=== PATIENT | female | born 1940 | race Caucasian/White ===

== ENCOUNTER 2020-03-01 15:28 | Inpatient (IN) | payer OTHER ==
[~2020-03-01] VITALS: Ht 162.6 cm; Wt 44.6 kg
--- NOTE | ~2020-03-01 | EMS ---
[address] [address] EMS Patient Care Report Name: RAFIA GARCÍA Room #: 170-8 ADM IN M.R.#: [id number] Admission: 03/01/20 Attend Phys: Arnoldo Rios DO Discharge: Date of : 38 Report #: [id number] THIS REPORT FOR: //name// Report Transmitted: 03/01/2020 20:07 EMS Care Summary [facility] MED-ACT Incident [id number] @ 03/01/2020 14:43 Incident Location [address] [place] [address] Patient RAFIA JACINTO Female, 79 Years 1940 Patient Address [address] [place] [address] Patient History Other,Dementia,Alzheimer's,Hyperlipidemia,Cardiac Condition - Other,Urinary Tract Infection (UTI),Diverticulitis,Osteoarthritis,Rhabdomyolysis, Patient Allergies No known allergies, Patient Medications Namenda, Xanax, Exelon, Potassium, Celexa, Ativan, Senna, Olanzapine, Chief Complaint "She is combative" Disposition Transported No Lights/[place] [facility] Reason Psychiatric Problem/Abnormal Behavior/Suicide Attempt Transported To [facility] Narrative HISTORY: Upon EMS arrival the patient was sitting in her wheelchair at the front entrance with staff and PD at her side. Staff stated the patient has a [facility] [address] [place] [address] EMS Patient Care Report Name: RAFIA GARCÍA Room #: 170-8 ADM IN .R.#: [id number] Admission: 03/01/20 Attend Phys: Arnoldo Rios, DO Discharge: Date of : 38 Report #: [id number] history of dementia and is normally able to express her needs but starting yesterday they noticed her to be combative and inconsolable. Staff stated the patient is normally able to follow directions but she currently refuses to follow commands. Staff said that they have given the patient her psych medications as prescribed, staff stated they have not effected the patients behavior. Staff stated the patient tested negative for COVID-19 on 02/22. They stated the patient has had not recent illnesses. When the patient was asked if anything hurt she stated, "everything is wrong". The patient refused to answer any further questioning but was compliant with exams. TREATMENT: V/S monitored, BG, TEMP, exams were repeated, a mask was placed on the patient, patient was put in the position of comfort. TRANSPORT: The patient stood and sat on the cot with assistance, she was moved to the ED bed via sheet drag without incident. DESTINATION: The patient was taken to [facility] ED to a hallway bed, report was given to nursing staff. Initial Vitals @15:19P: 75,BP: 124/73,Pain: 0/10,GCS: 14,Glucose: 88,SpO2: 95, @15:11P: 74,R: 16,BP: 130/84,SpO2: 96, @15:22P: 75,R: 16,BP: 125/82,SpO2: 95, Assessments @15:18MENTAL:Confused,Person Oriented,SKIN:HEENT:Eyes: No Abnormalities,LUNG SOUNDS:ABDOMEN:PELVIS//GI:EXTREMITIES:PULSE:Radial: 2+ Normal,NEURO: Impression Behavioral/psychiatric episode Timeline 14:41,Call Received 14:41,Psap Call 14:43,Dispatched 14:44,En Route 15:00,On Scene 15:02,At Patient 15:11,BP: 130/84 M,PULSE: 74,RR: 16 R,SPO2: 96 Ox,ETCO2: ,BG: ,PAIN: ,GCS: , 15:12,Depart Scene 15:19,BP: 124/73 M,PULSE: 75,RR: R,SPO2: 95 Ox,ETCO2: ,B,PAIN: 0,GCS: 14, 15:22,BP: 125/82 M,PULSE: 75,RR: 16 R,SPO2: 95 Ox,ETCO2: ,BG: ,PAIN: ,GCS: , 15:25,At Destination 15:35,Call Closed [facility] [address] [place] [address] EMS Patient Care Report Name: RAFIA GARCÍA Room #: 170-8 ADM IN M.R.#: [id number] Admission: 03/01/20 Attend Phys: Arnoldo Riso DO Discharge: Date of : 38 Report #: [id number] Disclaimer v1.1 Copyright 2020 [employer] This EMS Care Summary contains data elements from the applicable legal record (which may be displayed differently). It is designed to provide pertinent information for the following purposes: continuity of care, clinical quality, and state data reporting. The complete legal record is available to ED staff and administrators of the receiving hospital in [employer] Patient Tracker. All data is provided "as is."
--- NOTE | 2020-03-01 16:39 | EKG ---
[facility] [place] [address] ELECTROCARDIOGRAM REPORT Name: RAFIA GARCÍA Room #: [facility].#: [id number] Admission: 03/01/20 Attend Phys: Discharge: Date of : 36 Report #: [id number] THIS REPORT FOR: cc: ANDRES TAVARES MD Physician not on staff Riccardo Nguyen MD [facility] ~ THIS REPORT FOR: //name// [facility] ED Test Date: 2020-03-01 Test Time: 16:28:32 Pat Name: RAFIA VO Department: Room: Gender: F Bench Press Operator: : 1940 Requested By: Reny Sanchez Order Number: [id number] MD: Riccardo Nguyen Measurements Intervals [place] Rate: 75 P: 65 MD: 183 QRS: 42 QRSD: 78 T: 26 QT: 406 QTc: 454 Interpretive Statements Sinus rhythm Probable left atrial enlargement Abnormal R-wave progression, early transition No previous ECG available for comparison Electronically Signed On 03-01-2020 16:39:11 CDT by Riccardo Nguyen [email or web address] <ELECTRONICALLY SIGNED> By: Riccardo Nguyen MD, FACC 03/01/20 1639 1628 1628 Riccardo Nguyen MD, [facility] /EPI
[2020-03-01 17:12] LABS: ABSOLUTE NEUTROPHILS 6.1 thou/uL (1.4-8.2); BASOPHILS 0.8 % (0.0-2.0); EOSINOPHILS 0.6 % (0.0-3.0); HEMATOCRIT 37.6 % (37.0-47.0); HEMOGLOBIN 12.1 gm/dL (12.0-15.0); LYMPHOCYTES 14.1 % (24.0-44.0); MCH 29.5 pg (26.0-34.0); MCHC 32.3 g/dL (28.0-37.0); MCV 91.5 fL (80.0-100.0); MONOCYTES 8.9 % (1.0-8.0); POLYS 75.6 % (36.0-66.0); RBC 4.11 mil/uL (4.20-5.00); RDW 13.4 % (10.5-14.5); WBC 8.1 thou/uL (4.0-11.0)
[2020-03-01 17:18] LABS: ANION GAP 5 mmol/L (7-16); BUN 20 mg/dL (7-18); CALCIUM 8.7 mg/dL (8.5-10.1); CHLORIDE 103 mmol/L (98-107); CO2 34 mmol/L (21-32); CREATININE 0.6 mg/dL (0.6-1.0); GLUCOSE 93 mg/dL (74-106); POTASSIUM 3.5 mmol/L (3.5-5.1); SODIUM 142 mmol/L (136-145)
[2020-03-01 17:28] LABS: ALBUMIN 3.1 g/dL (3.4-5.0); SGOT 20 U/L (15-37); SGPT 22 U/L (30-65); TOTAL BILIRUBIN 0.6 mg/dL (0.2-1.0); TROPONIN-I <0.06 ng/mL (<0.06)
[2020-03-01 17:32] LABS: LARGE PLATELETS RARE; PLATELET COUNT 181 thou/uL (150-400)
[2020-03-01 17:48] LABS: SALICYLATE < 2.8 mg/dL (2.8-20.0)
[2020-03-01 20:16] LABS: URINE BILIRUBIN NEGATIVE (Negative); URINE BLOOD NEGATIVE (Negative); URINE CLARITY CLEAR; URINE COLOR YELLOW; URINE GLUCOSE-RANDOM* NEGATIVE (Negative); URINE KETONES NEGATIVE (Negative); URINE LEUKOCYTES-REFLEX NEGATIVE (Negative); URINE NITRITE-REFLEX NEGATIVE (Negative); URINE PROTEIN (DIPSTICK) NEGATIVE (Negative); URINE SPECIFIC GRAVITY 1.015 (1.005-1.035); URINE UROBILINOGEN 0.2 E.U./dl (0.2-1.0)
[2020-03-01 20:24] LABS: AMP/METHAMP Negative (Negative); BARBITURATES Negative (Negative); BENZODIAZEPINES POSITIVE (Negative); COCAINE Negative (Negative); METHADONE Negative (Negative); OPIATES Negative (Negative); PCP Negative (Negative)
[2020-03-01] MEDS ORDERED: CELEXA 20 MG TA20 MG PO (21:14)
[2020-03-01] MEDS ORDERED: MEMANTINE HCL10 MG PO (21:14)
[2020-03-01] MEDS ORDERED: COLACE100 MG PO (21:15)
[2020-03-01] MEDS ORDERED: OCUVITE TABLET1 EAC1 PO (21:15)
[2020-03-01] MEDS ORDERED: EXELON1 EAC1 TRANSDERM (21:22)
[2020-03-01] MEDS ORDERED: OLANZAPINE2.5 MG PO (21:22)
[2020-03-01] MEDS ORDERED: OYSTER SHELL C1 EAC1 PO (21:23)
[2020-03-01] MEDS ORDERED: K-TAB10 MEQ PO (21:23)
[2020-03-01] MEDS ORDERED: SENNA8.6 MG PO ×2 (21:23→21:24)
[2020-03-01] MEDS ORDERED: XANAX 0.25 MG0.25 MG PO ×2 (21:24→21:25)
[2020-03-02 03:38] VITALS: BP 137/77
[2020-03-02 03:46] VITALS: BP 151/59
[2020-03-02 04:15] VITALS: BP 156/70
--- NOTE | 2020-03-02 06:07 | NUR ---
03-02-20 0400 RECEIVED REPORTED FROM ED RN, DEMENTIA WITH AGGRESSIVE BEHAVIORS FROM [facility] AND PT HAS BEEN COMBATIVE WITH CONFUSION. 0415 PT ARRIVED ON FLOOR AND WAS ASSISTED INTO BED, PT AAOX1, LEFT SIDE LYING VS B/P 156/70, P 65, R 16, T 97.8, O2 SAT 95% RA RR EVEN AND NONLABORED, LUNGS CLEAR, HT S1, S2 RR, PT PRESENTS LETHARGIC HAVING TROUBLE ANSWERING QUESTIONS. SKIN ASSESSMENT RIGHT HAND POSTERIOR 3 SKIN TEARS 2 CM X2 AND 5 CM. RIGHT LEG OLD SCABBED ON RIGHT KNEE AND SKINBONE. PT WAS POSITION INTO COMFORT. PT HAS A HX ENCEPHALOPATHY, RHAMBDOMYOLYSIS, UTI, ALZEHIMERS, DEMENTIA WITH BEHAVIORAL DISTURBANCE, NONRHEUMATIC MITRAL INSUFFICIENCY, HLD, DEPRESSIVE, REPEATED FALLS, HALLUCINATIONS, MUSCLE WEAKNESS. PT WAS REPOSITION IN BED, ZERO S/S OF ACUTE DISTRESS NOTED, PT WILL CONTINUE TO BE MONITOR PER [facility] PROTOCOL.
[2020-03-02 08:00] VITALS: BP 131/72
--- NOTE | 2020-03-02 09:14 | NUR ---
PATIENT IS SLEEPING IN BED BUT IS EASILY AROUSED. LUNGS CTA BS + XS 4. HAS SKIN TEAR TO LEFT HAND HAS SCABS AND BRUISING TO KNEES. WILL GIVE AM MEDS WHEN PT IS UP AND IN CHAIR. PICTURE TAKEN FOR CHART AND PICTURE TAKEN FOR CHART. PT WALKING WITH STEADY GAIT. WAS ENCOURAGED TO USE WALKER BUT PATIENT DECLINED.
--- NOTE | 2020-03-02 12:03 | NUR ---
VERNA and Dr. Weston had a family meeting with the Pt's daughter/DPOA, Nelida Nam [phone]. Treatment, medication, and placement was discussed. Memory care is reommended for the Pt. Nelida stated the Pt was dx with shabbira Jul 2017. Nelida also that the family is looking for placement with [facility]. Nelida informed that [facility] wanted the Pt's behaviors decrease prior to admission. Verna will follow up with [facility] on the matter. VERNA will continue to follow Pt.
--- NOTE | 2020-03-02 12:48 | NUR ---
PT WAS IN BED AND WAS INCONT OF BLADDER, PT CLEANED UP AND CLEAN DRY BRIEF ON. THIS NURSE TRIED TO GIVE MEDS BUT PATIENT SPIT OUT AND ON STAFF. ASSIST XS [address] Mitra QIU. PT AT THIS TIME IS SLEEPING.
--- NOTE | 2020-03-02 16:03 | NUR ---
PT IS IN RASHI CHAIR SPITTING AT STAFF AND TRYING TO HIT.GIVEN PRN MED IM ORDERED. GAVE IN RIGHT DELTOID. WILL CONTINUE TO MONITOR AND KEEP SAFE.
--- NOTE | 2020-03-02 18:49 | NUR ---
WOUND CARE PICTURES TAKEN OF PATIENTS RIGHT HAND. WOUND CARE NURSE CALLED AND MESSAGE LEFT FOR HIM TO SEE PATIENT AND PUT IN TX ORDER .
[2020-03-02 19:49] VITALS: BP 91/59
--- NOTE | 2020-03-03 00:19 | NUR ---
Care assumed of patient at 1915: Patient seated in maki chair in dayroom at start of shift. Patient awake and fairly alert. Restless and needing repositioned frequently. Patient able to state her name but not able to answer any further questions. No s/s of pain or discomfort. No behaviors indicative of SI/HI/AH/VH. Patient easily irritable and startled. No aggression or combative behaviors observed. Patient incontinent of bowel and bladder. Patient resistive with desiree care by attempting to push staff away but was not physically or verbally aggressive. HS medication crushed in pudding. When patient was asked if she wanted a bite of pudding, she clearly asked "what kind?". Patient then took all HS medication crushed and ate 100% HS snack with total assist. Patient was assisted to bed with max assist x2 at a reasonable hour and has been resting quietly since.
[2020-03-03 07:53] VITALS: BP 140/64
[2020-03-03 08:00] VITALS: BP 140/64
--- NOTE | 2020-03-03 08:20 | NUR ---
PT SITTING IN DINING FOR BREAKFAST. PT NEEDED FED BREAKFAST. PT CAN ANSWER SHORT EASY QUESTIONS. PT LUNGS CLEAR. PT NEEDS ASSIST WITH TOILETING. PT TOOK MEDS CRUSHED. PT WAS CHEWING UP VITAMIN MED. PT ATE REALLY GOOD FOR BREAKFAST.
--- NOTE | 2020-03-03 10:47 | NUR ---
WOUND CONSULT; THE PATIENT RIGHT HAND HAS THREE SKIN TEARS OF UKNOWN ETIOLOGY. NO CONSISTANT WITH A COMMON SKIN TEAR. NO S/S OF INFECTION. MILD SEROUS DRAINAGE WNL. THE PATIENT IS NON COMMUNICATIVE, BUT DOES NOT APPEAR TO CAUSE PAIN WHILE CLEANING THE WOUND OR APPLYING A DRESSING. RECOMMENDATIONS; 1-APPLIED A MARATHON (A NO STING SKIN PROTECTANT),COVER WITH A BORDER FOAM.SECIRED WITH A TUBIGRIP. DISCUSSED WITH TAVO
--- NOTE | 2020-03-03 15:45 | NUR ---
VERNA recieved a voice mail from Socorro Dean from [facility]. Socorro confirmed she recieved the updates VERNA faxed. Socorro also expressed concern about accepting the Pt into the facility. Socorro stated she was "skeptical" about the pt coming to the facility. Socorro stated she would like updates on Friday in and effort to further assess if Pt would be appropriate for [facility].
--- NOTE | 2020-03-03 16:06 | NUR ---
VERNA spoke with Pt's DPOA, Nelida. SW informed nelida about [facility] voicemail and the concerns they continue to have. Verna asked if Nelida could provide other facilities she would like referrals sent to. Nelida stated she will have a phone confrence with her sibling and get back with VERNA on Friday concerning the matter.
--- NOTE | 2020-03-03 18:23 | NUR ---
PT HAS BEEN RESTING MOST OF THE DAY IN DINING ROOM. PT IS AWAKE NOW AT THIS TIME. PT NEEDED ASSISTANCE WITH FEEDING AND DRINKING. NO BEHAVIORS NOTED FROM PT.
[2020-03-03 19:38] VITALS: BP 109/49
[2020-03-03 20:00] VITALS: BP 109/49
--- NOTE | 2020-03-04 02:37 | NUR ---
ASSUMED PT CARE AROUND 1930. ALERT AND AWAKE IN RECLINER. ONLY ASNWERS NAME CORRECT. PT DID NOT ANSWER ANY OTHERS QUESTIONS APPROPRIATELY. VSS. NO S/S ACUTE DISTRESS NOTED OR REPORTED AT THIS TIME. WILL CONT TO MONITOR FOR ANY CHANGES IN CONDITION.
[2020-03-04 07:39] VITALS: BP 121/74; BP 146/84
[2020-03-04 07:47] VITALS: BP 146/84
[2020-03-04 08:00] VITALS: BP 146/84
--- NOTE | 2020-03-04 08:00 | NUR ---
PT RESTING IN BED AT THIS TIME. PT SNORING. BED ALARM IS ACTIVATED.
--- NOTE | 2020-03-04 09:19 | NUR ---
PT STILL SLEEPING AT THIS TIME.
--- NOTE | 2020-03-04 10:11 | NUR ---
PT STILL ASLEEP AT THIS TIME.
--- NOTE | 2020-03-04 11:15 | NUR ---
PT MOANING OUT AND AWAKE. PT LAYING FLAT, PT SAID GO AWAY WHEN TELLING HER IS TIME TO GET UP. PT VERY STIFF WHEN ROLLING FROM ONE SIDE OF BED TO ANOTHER. PT SEEMS IN PAIN. ASKED PT WHERE SHE HURTS, PT POINTED TO ABD. ABD PALPATED AND IS SOFT. PT WAS SATURATED IN URINE IN BRIEF AND PAPER PAD. CLEANED PT AND APPLIED BARRIER CREAM. PT DID HAVE SMALL AMT OF MUCOUS IN FINESSE AREA. PT MOUTH IS DRY.
--- NOTE | 2020-03-04 11:51 | NUR ---
PT MOANING AND GRIMACING. ADM TYLENOL 325MG 2 TABS PO FOR PAIN. PT DID EAT 100% OF YOGART AND ONE BITE OF CARROT. PT DID DRINK A FEW SIPS OF WATER THEN CLOSED EYES TO REST, PT OUT IN DINING ROOM IN RECLINER CHAIR.
--- NOTE | 2020-03-04 15:53 | NUR ---
PT WAS OFFERED WATER TO DRINK, PT REFUSED AND KNOCKED IT OFF THE FLOOR.
[2020-03-04 19:36] VITALS: BP 143/114
[2020-03-04 22:15] VITALS: BP 143/114
--- NOTE | 2020-03-05 03:13 | NUR ---
Assumed care of patient this pm shift. Patient sitting in the mileu in a maki chair. Patient is calm and cooperative. Affect blunted. Patient is alert and oriented to self. Patient takes medications crushed in pudding. Patient does not appear to have hi/si. Patients assessment shows no signs of acute distress. Patient is considered a falls risk and has on a yellow shirt. Patient does get agitated with cares then calms down. We will continue to monitor per hospital policy.
[2020-03-05 07:49] VITALS: BP 115/73
--- NOTE | 2020-03-05 09:09 | NUR ---
0700 ASSUMED CARE OF PATIENT, PATIENT SITTING IN WC IN DAYROOM QUIETLY AT THAT TIME. 0815 PATIENT EATING BREAKFAST WITHOUT ASSISTANCE. DENIES NEEDS AT THAT TIME. MEDICATION TAKEN WITH APLLESAUCE WITHOUT DIFFICULTY. PATIENT ATTENDING GROUP AT THIS TIME.
--- NOTE | 2020-03-05 09:26 | NUR ---
0700 ASSUMED CARE OF PATIENT, PATIENT SITTING IN GERICHAIR IN DAYROOM. 0810 PATIENT ASSISTED WITH BREAKFAST. PATIENT ALERT, CONFUSED AND RESTLESS. MEDICATIONS ATTEMPTED TO GIVE IN PUDDING, PATIENT SPITS PUDDING OUT. FOUNDRY METALLURGIST WAITED A FEW MIN THEN RETURNED AND PATIENT TAKES MEDICATION IN APPLESAUCE. PATIENT TRYING TO REMOVE SHIRT, COMBATIVENESS WITH CARES WHILE PUTTING SHIRT BACK ON. [facility] NOT [facility]ING GROUP.
--- NOTE | 2020-03-05 13:34 | NUR ---
Faxed updates to [facility].
[2020-03-05 19:23] VITALS: BP 138/68
[2020-03-05 22:00] VITALS: BP 138/68
--- NOTE | 2020-03-06 03:23 | NUR ---
Assumed care of patient this pm shift. Patient pleasantly confused, calm and cooperative. Patient is alert and oriented to self. Patient takes medications crushed in pudding. Patients affect is blunted. Patient is considered a falls risk and has on a yellow shirt. Patients assessment shows no signs of acute distress. Vital signs are stable. We will continue to monitor per hospital policy.
[2020-03-06 07:46] VITALS: BP 154/85
--- NOTE | 2020-03-06 07:57 | H ---
[facility] [place] [address] HISTORY AND PHYSICAL Name: RAFIA GARCÍA Room #: 520A-A ADM IN M.R.#: [id number] Admission: 03/01/20 Attend Phys: Arnoldo Rios DO Discharge: Date of : 38 Report #: [id number] THIS REPORT FOR: cc: ANDRES TAVARES MD Physician not on staff Arnoldo Rios DO ~ CC: Arnoldo TAVARES Physician staff DATE OF SERVICE: 03/01/2020 INPATIENT PSYCHIATRIC EVALUATION ATTENDING PSYCHIATRIST: Arnoldo Rios DO DRUM FILLER: Dr. Philip REASON FOR ADMISSION: Combativeness, agitation and need for 1:1 at [facility]. SOURCES OF INFORMATION: Documentation from nursing facility, specifically Dr. Tavares's telephone conversation with the patient's daughter, Nelida vargas at [phone]. CHIEF COMPLAINT: This patient is not able to specify and has difficulty talk to. HISTORY OF PRESENT ILLNESS: This is an 79-year-old malnourished female, BMI is 17.4. The patient has only been a resident at the [facility] since 02/18/2020. We got a referral yesterday from them and Corby Waters, social work professor at [facility] stated that the patient was agitative, combative, throwing things. They were needing a 1:1. I advised to send the patient to the Emergency Room for the medical clearance first as it sounded deliriogenic. Interestingly, her medical evaluation was grossly normal. In speaking with the daughter, Nelida, troubles began in ear where she had an 11-day or so admission at [facility] for complicated delirium, stemming from the urinary tract infection. The patient has a history of Alzheimer's dementia diagnosed in 07/2017. She was at her own residence and there were intermittent caregivers coming in and out. Since , the patient has not been able to live without 24-hour care and supervision. I did discuss with the daughter early on given her urinalysis was clean in the ER and the persistence of things, she may unfortunately be at a new cognitive and functional baseline. The daughter was eyeing a placement in comfort nursing home. Again there, I cautioned her that some dementia patients require 2-person assist and home persons sometimes cannot [facility] [address] [place] [address] HISTORY AND PHYSICAL Name: RAFIA GARCÍA Room #: 520A-A ADM IN [facility]#: [id number] Admission: 03/01/20 Attend Phys: Arnoldo Rios DO Discharge: Date of : 38 Report #: [id number] provide that people power. In any event, the patient was born and raised with one brother, intact family. She graduated with a bachelor's degree in [employer]. 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 The patient has 3 children total. The daughter, Nelida is the youngest, was born in 1971. PAST MEDICAL HISTORY: Includes allergic rhinitis, diverticulosis, hyperlipidemia, mitral insufficiency, osteoarthritis, osteopenia, depression, urinary incontinence. FAMILY HISTORY: Hypertension in mother, osteoporosis in mother, father's side is not well known. There is a gross negative family psychiatric history including dementia. The daughter did not believe that the patient had been physically, sexually or emotionally abused. Her brother is younger, alive, in good health. The patient socially has been x 2. PSYCHIATRIC MEDICATIONS: Have been tried include Xanax 0.25 mg as needed; olanzapine 2.5 mg twice daily, which she is currently on; Exelon patch 9.5 mg; Namenda 10 mg p.o. twice daily; and Celexa 20 mg p.o. daily, which she is currently on. Her SARS COVID-19 RNA was not detected that was done on 02/20, resulted on 02/22. Additional information at [facility], it says she did get a CT head, which was negative for acute changes. CPK was mildly elevated. The patient had a fall a few days prior to her [facility] presentation. Does not look like they found the fracture, was given IV fluids, IV antibiotics. It says the patient was on IV Zyprexa, which I find hard to believe as Zyprexa is not available for intravenous administration. In any event, there was a Neurology consult at [facility]. PAST SURGICAL HISTORY: Includes hysterectomy, , malrotated bowel repair. MEDICATIONS: At [facility] were Celexa, Exelon patch, Namenda, olanzapine 2.5 b.i.d. On oyster, vitamin D complex, potassium chloride extended release, senna tablets and then the p.r.n. Xanax. Looks like they were attempting to do OT, speech therapy for the patient, not sure how successful that was. In any event, the patient with us is grossly nonambulatory in bed, actually spitting this morning so not much of a physical exam. MENTAL STATUS EXAMINATION: This is a elederly, ill, malnourished, thin female. [facility] [address] [place] [address] HISTORY AND PHYSICAL Name: RAFIA GARCÍA Room #: 520A-A [facility] IN [facility].#: [id number] Admission: 03/01/20 Attend Phys: Arnoldo Rios DO Discharge: Date of : 38 Report #: [id number] Attention impaired. Concentration impaired. Speech, frequently yelling. Thought process nonlinear and incoherent at times. Thought content, poverty. Significant psychomotor agitation. Unable to assess well for suicidality; homicidality; auditory, visual, or tactile hallucinations. Memory grossly impaired. Insight impaired, judgment impaired. Fund of knowledge well below average. FORMULATION: An 79-year-old female with history of dementia, superimposed delirium, stemming from UTI in early January; admitted for assaultive, aggressive behavior at [facility]. DIAGNOSES: At this time, major neurocognitive disorder, but due to Alzheimer disease with behavioral disturbance, decompensated. History of depression, though unable to diagnose currently. Other morbidities include osteoarthritis, osteopenia, falls, unsteadiness of gait, weakness. PLAN: Evaluate, stabilize, obtain collateral. I personally helped the nursing staff transfer her from bed to Katarina chair today that proved to be quite difficult and she was essentially a max assist. Regarding her medications, we will continue potassium chloride 20 mEq p.o. b.i.d. I did speak to her daughter and she agreed to discontinue the rivastigmine due to the poor appetite and weight loss. We will continue olanzapine 5 mg p.o. b.i.d. I plan to go ahead and increase that to 3.75 mg p.o. b.i.d. with IM backup. Continue memantine 10 mg p.o. b.i.d., continue multivitamin. Continue docusate 100 mg p.o. b.i.d., hold if diarrhea. The citalopram, the more I think about it I think would better off discontinuing that given her present state which is in my opinion product support sales representative more of a delirium than anything. Continue calcium carbonate 500 mg p.o. b.i.d., try to avoid any further benzodiazepines as she got them in the ER as they are known to be deliriogenic. ESTIMATED LENGTH OF STAY: 10-14 days. Time spent on interview, review of records, coordination of care is at least 60 minutes. Greater than 50% of the time was spent on review of records, coordination of care. STRENGTHS: She is insured, has an involved DPOA. WEAKNESSES: Advanced age, dementia, several medical comorbidities. <ELECTRONICALLY SIGNED> By: Arnoldo Rios DO 03/06/20 0757 1215 1327 Arnoldo Rios DO /nt
--- NOTE | 2020-03-06 11:21 | NUR ---
WOUND CARE F/U; THE RIGHT HAND SKIN TEAR IS IMPROVING RAPIDLY EITH NO S/S OF INFECTION THE DRESSING IS CLEAN, DRY AND INTACT. NO DRAINAGE WAS SEEN. RECOMMENDATIONS; CONTINUE CURRENT TREATMENT. DISCUSSED WITH RN
--- NOTE | 2020-03-06 16:23 | NUR ---
VERNA recieved a call from [facility] stating they would not be accepting the Pt due to not being able to meet the PT's needs.
--- NOTE | 2020-03-06 16:23 | NUR ---
VERNA called Pt's DPOA, Nelida, concerning the the denial from [facility]. Nelida asked that a referral be sent to [facility]. VERNA also emailed a listing of facilities to Nelida per her request. [email or web address]
[2020-03-06 19:31] VITALS: BP 144/66
--- NOTE | 2020-03-06 23:09 | NUR ---
Care assumed of patient at 1915: Patient seated in dayroom at start of shift. Calm, pleasant and cooperative. Patient responds to name being called. Patient is able to speak clear words but they are in a disorganized, rambling pattern. Patient ate 100% HS snack, total assist. Took HS medication crushed without difficulty. No s/s of pain or discomfort. Confused and forgetful. Patient became irritable while being transferred and provided toileting cares. After wards, patient looked at staff and stated "thank you". Incontinent of bladder. Fariha care completed and linens changed. No behaviors indicative of SI/HI/AH/VH. Patient was irritable but not combative with ADLs. Patient was able to fall asleep without difficulty and is resting quietly in bed at this time.
--- NOTE | 2020-03-07 09:13 | NUR ---
0700 ASSUMED CARE OF PATIENT, PATIENT SITTING IN DAYROOM IN [facility]. PATIENT WITH EYES CLOSED AT THAT TIME. PATIENT ATE 15% OF BREAKFAST, PATIENT SPITTING OUT FOOD. 0830 MEDICATIONS GIVEN CRUSHED IN APPLESAUCE PATIENT TAKES WELL. AFTER MEDS TAKEN, PATIENT STARTS SPITTING. 0845 PATIENT SLEEPING IN CHAIR. 0900 PATIENT SPITTING, PATIENT TAKEN TO ROOM AT THAT TIME.
[2020-03-07 09:19] VITALS: BP 119/73
--- NOTE | 2020-03-07 15:31 | NUR ---
VERNA recieved a call from Crispin at [facility], . Crispin informed theey felt the Pt was benefiting from rehab and they are willing to accept the Pt back to the facility. VERNA informed that the family is also intrersted in a memory care placement with [facility]. Crispin stated she would inform the memory care and check for openings.
--- NOTE | 2020-03-07 15:55 | NUR ---
VERNA sent referral to [facility]
--- NOTE | 2020-03-07 15:56 | NUR ---
VERNA spoke with Nelida schmitt informed [facility] willing to accept Pt back for Rehab. Nelida had a question concerning information given from [facility] that the Pt had a dx of encephalopathy. VERNA looked through notes and informed nelida that [facility] did not have any information concerning that dx, however SW will get talk to Dr. Weston concerning the matter. VERNA also gave an update on Pt's. Nelida had no further questions or concerns at this time
[2020-03-07 19:35] VITALS: BP 123/82
--- NOTE | 2020-03-08 00:17 | NUR ---
Care assumed of patient at 1915: Patient seated in maki chair at start of shift, in dayroom. Patient alert, smiling, speaking clear words but disorganized speech. Alert and oriented to name only. Confused and forgetful. No s/s of pain or discomfort. Took HS medication crushed without difficulty. Ate 100% HS snack, fed by staff. No aggression or agitation observed. Assisted to bed. Cooperative with desiree care and linen change. Patient assisted in holding side rail and turning side to side this evening. Barrier cream applied. Patient was able to fall asleep without difficulty and is resting quietly at this time.
[2020-03-08 07:27] VITALS: BP 126/73
--- NOTE | 2020-03-08 08:21 | NUR ---
RT Progress Note- Ana has not been an active participant in recreation therapy groups d/t cognition, however she has been passively present. At times she has been moved further away from the group as she moans out, as if she is over stimulated or in pain. This seems to decrease some of the behavior. Staff will continue to provide leisure opportunities throughout her admission.
--- NOTE | 2020-03-08 10:38 | NUR ---
WOUND CARE F/U; THE RIGHT HAND WOUND HAS A SMALL AMOUNT OF CLOUDY DRAINAGE NO ODOR. THE WOUND IS NOT INFECTED. WE HAVE BEEN USING MARATHON TO TRY TO PRESERVE THE SKIN TEAR EPITHELIUM TO NO EVAL. THE WOUND HAS HELTHY TISSUE. RECOMMENDSATION; 1-D/C MARATHON AND CHANGE TO XEROFORM, AND BORDER FOAM DISCUSSED WITH RN
[2020-03-08 11:19] VITALS: BP 126/73
[2020-03-08] MEDS ORDERED: ZYPREXA 5 MG TAB5 M1 PO (12:06)
[2020-03-08] MEDS ORDERED: POTASSIUM CHLO20 MEQ PO (12:07)
[2020-03-08] MEDS ORDERED: CALTRATE-600 W1 EACH PO (12:08)
--- NOTE | 2020-03-08 12:30 | NUR ---
1200 RESUMMED CARE FROM OVERNIGHT SHIFT THIS AM, PATIENT IN RECLINER QUIET. PATIENT TOOK MEDICATION CRUSHED IN YOGART AND DRANK APPLE JUICE WITHOUT INCIDENCE. PATIENTS ABDOMAN SOFT ROUND BOWEL SOUNDS PRESENT, PATIENT CONFUSED ONLY ORIENTED TO SELF ONLY. PATIENT UNABLE TO TELL ME ABOUT SI/HI/AH/VH AT PRESENT DUE TO COGNITIVE PROBLEMS. WOUND CARE CAME AND CHANGED BANDAGE ON RT WRIST. LAB CALLED AND PATIENTS COVID TEST IS POSITIVE, DR DUNHAM TALKED WITH DR DE ANDA AND PATIENT IS TO BE TRANSFERRED TO MEDICAL FLOOR. WILL CONTINUE TO MONITOR PATIENT FOR BEHAVIORS AND SAFETY.
[2020-03-08 14:35] LABS: HEMATOCRIT 43.4 % (37.0-47.0); HEMOGLOBIN 14.1 gm/dL (12.0-15.0); MCH 29.7 pg (26.0-34.0); MCHC 32.5 g/dL (28.0-37.0); MCV 91.3 fL (80.0-100.0); RBC 4.75 mil/uL (4.20-5.00); RDW 13.9 % (10.5-14.5); WBC 10.4 thou/uL (4.0-11.0)
[2020-03-08 14:41] LABS: CALCIUM 9.6 mg/dL (8.5-10.1); CREATININE 0.6 mg/dL (0.6-1.0); POTASSIUM 3.9 mmol/L (3.5-5.1)
--- NOTE | 2020-03-08 14:55 | NUR ---
VERNA followed up on referral sent to [facility]. VERNA spoke with Mae at [facility]. Mae stated she would like to set up an assessment with the Pt for 03/08/2020 at 4 pm. VERNA will set assessment through domingo..
--- NOTE | 2020-03-08 16:31 | NUR ---
Pt completed asessment with Kem. VERNA and TAVO Collins was avalible to answer questions concerning the Pt.
--- NOTE | 2020-03-08 16:34 | NUR ---
VERNA spoke called Nelida concerning placement and asessment with [facility]. SW provided contact information for admissions department at [facility]. SW also discussed treatment teams conversation about the Pt's abilit to participate in Rehab. VERNA informed although Radha felt the Pt could [facility] treatment team diagreed and feels Pt is unable to participate due to being max assist X2, non weight bearing and oriented 1x. Nelida seeemed to understand this information. Nelida would like a video visit with the Pt. VERNA will set up a time to complete a visit via [email or web address]
[2020-03-08 19:34] VITALS: BP 110/74
--- NOTE | 2020-03-08 20:35 | NUR ---
Care of patient assumed at 1915: Patient calm, pleasant and cooperative. Alert and oriented to person only. Appears to be restless with mild facial grimacing. Provided PRN Tylenol with HS medication. Took HS medication crushed without difficulty. No combative behaviors or agitation observed. Report given to 3W TAVO Guevara. Patient transferred to 3W room 361 with all personal belongings present on unit.
== END 2020-03-08 20:33 | disposition short-term general hospital (02) | DRG 884 ==
LOC: ER 15:28 → EROBS 19:18 → SBH 19:18 → EROBS 19:19 → SBH 03-02 04:00
PROVIDERS: Internal Medicine; Physician Assistant; ADMIT Psychiatry & Neurology Psychiatry; ATTEND Psychiatry & Neurology Psychiatry
DX: F01.51 Vascular dementia, unspecified severity, with behavioral disturbance (principal); U07.1 COVID-19; E78.5 Hyperlipidemia, unspecified; F32.9 Major depressive disorder, single episode, unspecified; I34.0 Nonrheumatic mitral (valve) insufficiency; F41.9 Anxiety disorder, unspecified; F29 Unspecified psychosis not due to a substance or known physiological condition; M85.80 Other specified disorders of bone density and structure, unspecified site; M19.90 Unspecified osteoarthritis, unspecified site; Z79.899 Other long term (current) drug therapy
CPT/HCPCS: 10880

== ENCOUNTER 2020-03-08 18:48 | Inpatient (IN) | payer OTHER ==
[~2020-03-08] VITALS: Ht 162.6 cm; Wt 44.7 kg
[~2020-03-08 18:48] MED LIST: CALTRATE-600 W1 EACH PO; CELEXA 20 MG TA20 MG PO; COLACE100 MG PO; EXELON1 EAC1 TRANSDERM; K-TAB10 MEQ PO; MEMANTINE HCL10 MG PO; OCUVITE TABLET1 EAC1 PO; OLANZAPINE2.5 MG PO; OYSTER SHELL C1 EAC1 PO; POTASSIUM CHLO20 MEQ PO; SENNA8.6 MG PO; XANAX 0.25 MG0.25 MG PO; ZYPREXA 5 MG TAB5 M1 PO
[2020-03-08 20:37] VITALS: BP 170/93
[2020-03-09 04:04] VITALS: BP 146/70
--- NOTE | 2020-03-09 06:41 | NUR ---
PT IS A TRANSFER FROM [address] COMPLETED ASSESSMENT AND PUT IN ADMISSION ORDER. PT TRANSFERRED DUE TO A POSITIVE PCR AND SECOND PCR RESULTED IN A NEGATIVE. PT HAD NEG/POS/NEG PCR. AWAITING MEDICATION ORDERS. PT IS M/S AND SLEPT ALL EVENING. IN REPORT PT IS IMPULSIVE/COMBATIVE AND DX OF DEMENTIA.
[2020-03-09 07:59] VITALS: BP 170/138
[2020-03-09 09:01] LABS: FOLIC ACID 19.4 ng/mL (8.6-58.9); TSH 0.707 uIU/mL (0.358-3.740)
--- NOTE | 2020-03-09 14:15 | NUR ---
INITIAL ASSESSMENT: Received consult. VERNA reviewed chart and spoke with nursing and attending physician. [facility] due to positive [facility] test. Pt is afebrile and not requiring O2. Discussed case with [facility] VERNA. Pt's family is interested in [facility]. VERNA spoke with pt's dtr, Nelida, via phone. Pt was admitted to [facility] from [facility] [facility]. Per Nelida, she thinks that they are interested in [facility]. Nelida is also to follow up with [facility] today. VERNA discussed with [facility] liaison, who states that [facility] does not have any beds available in their memory care unit, but they do in the memory care SNF. Therapy evals ordered today to assist with recommendation for level of care. VERNA received email for pt's dtr, Kelly, who lives in [place], requesting a video call with pt today after 1630. VERNA discussed with pt's nurse, who will call Kelly between [phone] today from pt's room for video call. Awaiting input from family regarding preference of facility. VERNA is following to assist as needed with discharge planning.
[2020-03-09 15:27] VITALS: BP 144/86
--- NOTE | 2020-03-09 17:39 | NUR ---
ASSUMED PATIENT CARE AT 0700. AWAKE. CONFUSED. RESTLESS ON BED. ASSISTED PATIENT EACH MEAL. 2ND COVID SENT. SLOWLY TOWARDS POC GOALS.
[2020-03-09 19:22] VITALS: BP 124/67
[2020-03-09 23:06] LABS: GLYCOHEMOGLOBIN (HGB A1C) 5.8 % (4.8-5.6)
--- NOTE | 2020-03-10 00:50 | NUR ---
ASSESSMENT COMPLETED. DISORIENTED X 4. RESTLESS IN THE BED BUT NOT TRYING TO GET UP. SHE TOOK HER MEDS WHOLE IN ICE CREAM. VSS. AFEBRILE. STABLE ON ROOM AIR.FREQUENT CHECKS.FALL PREC IN PLACE.
[2020-03-10 04:22] VITALS: BP 124/61
[2020-03-10 09:17] VITALS: BP 89/55
--- NOTE | 2020-03-10 09:18 | NUR ---
WOUND CARE F/U; PT KNOWN TO THIS WOC NURSE FROM STAY ON 5 SOUTH, DUE TO COVID RESTRICTIONS DISCUSSED WOUND CARE W/ TECHNICAL COMMUNICATOR MILTON, SKIN TEAR R HAND, SUGGESTED PHOTO CONT CURRENT TX UNLESS WOUND WORSEN AND TO LET WOC NURSE KNOW RECOMMENDATIONS; XEROFORM GAUZE, BORDER FOAM TO R HAND, CHANGE 3X WEEK AND PRN TECHNICAL COMMUNICATOR AWARE
--- NOTE | 2020-03-10 14:30 | NUR ---
VERNA reviewed chart and spoke with nursing and attending physician. Pt remains in Enhanced Isolation due to COVID-19. Pt's repeat test from yesterday is positive. VERNA discussed case with [facility] unit SW. [facility] is able to accept pt. VERNA spoke with Ursula Martinez ([phone]) to confirm acceptance. Pt's dtr, Nelida, will be touring the facility tomorrow and signing admission ppwk. Pt will need two negative COVID tests prior to admission. The second test must be completed within 24-48 hours after the first test. VERNA discussed with attending physician. Pt's dtr states pt is missing her glasses and unsure if they are on [facility] or possibly over at [facility]. VERNA notified [facility] liaison. SW updated pt's dtrs, Nelida and Kelly. Family was able to do video chat with pt yesterday afternoon. No weekend discharge planned. VERNA is following to assist as needed with discharge planning.
--- NOTE | 2020-03-10 14:34 | NUR ---
PT CARE ASSUMED AT 0700, PT ALERT BUT SLEEPY. DISORIENTED X4. UNABLE TO FOLLOW COMMANDS. PT IS ON ROOM AIR, NO SIGNS OF DISTRESS NOTED. PT FED HER BRFEAKFATS AND LUNCH, ONLY ATE ABOUT 10%. FALL PRECAUTIONS IN PLACE. WILL CONTINUE TO MONITOR.
[2020-03-10 16:38] VITALS: BP 125/57
[2020-03-10 20:11] VITALS: BP 127/81
[2020-03-11 05:15] VITALS: BP 124/74
--- NOTE | 2020-03-11 07:43 | NUR ---
ASSUMED CARE AT 1900, ASSESSMENT COMPLETED. TEMP OF 101 AT HS, GAVE DOSE OF TYLENOL. PT TOOK MEDS CRUSHED IN PUDDING WITHOUT ISSUE. CRIED AND TREMORED WITH CARES AND TURNS, BUT DIDN'T FIGHT OR SPIT. PT HAD LOW URINE OUTPUT OVERNIGHT, DARK/CONCENTRATED. O2 SATS DROP, BUT PT VERY RESTLESS/FRUSTRATED WHEN TRYING TO DO VS WHICH MAY CONTRIBUTE TO LOW LEVEL; PT ON 3L O2. NO OTHER CONCERNS, SHIFT REPORT GIVEN AT 0700.
[2020-03-11 08:23] VITALS: BP 132/71
[2020-03-11 15:41] VITALS: BP 126/82
--- NOTE | 2020-03-11 18:29 | NUR ---
PT CARE ASSUMED AT 0700, PT AWAKE AT TIMES, UNABLE TO FOLLOW COMMANDS. DISORIENTED X4, IMPULSIVE AT TIMES. OXYGEN DECREASE DOWN TO 2L, NO SIGNS OF DISTRESS NOTED. PT CONTINUES TO HAVE LOW APPETITE, ENCOURAGE TO EAT. FED PT MULTIPLE TIMES BARELY ATE ANYTHING. REPOSITIONED AND CLEANED UP NEEDED. FALL PRECAUTIONS IN PLACE, BED AT LOWEST LEVEL WITH ALARM ON. WILL CONTINUE TO MONITOR.
[2020-03-11 19:57] VITALS: BP 123/67
[2020-03-12 03:44] VITALS: BP 108/75
--- NOTE | 2020-03-12 06:42 | NUR ---
ASSUMED CARE AT 1900. PT MORE RESTLESS OVERNIGHT, TURNED SELF SIDEWAYS IN BED WITH LEGS OUT OF IT MULTIPLE TIMES EARLY IN NIGHT. REPOSITIONED MULTIPLE TIMES AND CHANGED GOWN D/T INCONT. TOOKS MEDS CRUSHED IN PUDDING W/O ISSUE. CHANGED PULSE OX TO TOE, W/A MUCH BETTER READING, SAT 95% ON 1L. NO OTHER CONCERNS, WILL CONTINUE TO MONITOR.
[2020-03-12 09:07] VITALS: BP 115/67
[2020-03-12 16:50] VITALS: BP 121/81
--- NOTE | 2020-03-12 18:32 | NUR ---
PT CARE ASSUMED AT 0700, PT AWAKE AT TIMES BUT MOSTLY LETHARGIC AND AGITATED AT TIMES. NO SIGNS OF DISTRESS OR PAIN NOTED. PT CONTINUES TO RARELY EAT. FED PT MULTIPLE TIMES BUT BARELY ATE. INCONTINENT AND CHANGE NEEDED. HAD TO PUT PT BACK ON O2 DUE O2 SAT AROUND 88%. FALL PRECAUTION IN PLACE. WILL CONTINUE TO MONITOR.
[2020-03-12 19:24] VITALS: BP 133/66
[2020-03-13 03:39] VITALS: BP 117/66
[2020-03-13 08:00] VITALS: BP 104/60
--- NOTE | 2020-03-13 15:33 | NUR ---
VERNA reviewed chart and spoke with nursing and attending physician. Pt remains in Enhanced Isolation due to COVID-19. Pt had fevers over the weekend. Pt is on 2L of O2. ID consulted yesterday. Pt to have repeat COVID test ordered today. VERNA received call from Ursula at [facility], who states that they are able to accept pt when pt is medically stable for discharge. Pt's dtr, Nelida, toured the facility on Friday. Pt will need a negative COVID test and then possibly a second negative COVID test prior to admitting to their facility. Ursula states that each case is reviewed by the clinical and regional team on a case by case basis. SW updated pt's dtrs, Nelida and Kelly. SW to fax COVID results to [facility] when available. VERNA is following to assist as needed with discharge planning.
[2020-03-13 15:52] VITALS: BP 134/79
[2020-03-13 19:47] VITALS: BP 117/67
[2020-03-14 03:43] VITALS: BP 120/72
--- NOTE | 2020-03-14 05:23 | NUR ---
PT MAKING SLOW PROGRESS TOWARDS GOALS. PT INITIALLY DROWSY AND DIFFICULT TO GET HER TO TAKE HER MEDS. DID HOLD HS HALDOL DOSE DUE TO DROWSINESS. THIS AM, PT STILL DROWSY BUT WAS ABLE TO VERBALLY RESPOND APPROPRIATELY TO "HELLO" AND SQUEEZE THIS WRITERS HAND UPON COMMAND. WAS ABLE TO OBTAIN COVID SWAB LAST NIGHT WITH MINIMAL RESTLESSNESS DURING THAT EVENT.
[2020-03-14 07:40] VITALS: BP 130/76
--- NOTE | 2020-03-14 09:22 | NUR ---
Consider run new labs. Pt was hyernatremic on 03/08, and continues to not eat or drink well.
--- NOTE | 2020-03-14 14:03 | NUR ---
ASSUMED PATIENT CARE THIS AM AT APPROXIMATELY 0700. PATIENT IS RESTING IN BED, AWAKE, BUT DROWSY, ORIENTED TO SELF AND FOLLOWS SOME COMMANDS, O2 SAT STABLE ON 2LNC, FURTHER ASSESSMENT CHARTED, MEDS CHARTED. DR. GUERRA, ABLE TO ASSESS PATIENT VIA VIDEOCHAT THIS SHIFT. MEDICATION ADJUSTED FOR PATIENT TODAY. CHEST XRAY TAKEN THIS SHIFT. NO ACUTE CHANGES NOTED. FALL/ SAFETY PRECAUTIONS IN PLACE.
[2020-03-14 15:51] VITALS: BP 142/72
--- NOTE | 2020-03-14 16:10 | NUR ---
VERNA reviewed chart and spoke with nursing and attending physician. Pt remains in Enhanced Isolation due to COVID-19. Pt's repeat test from yesterday was negative. Pt is afebrile and on 2L of O2. Psych following and is adjusting pt's medications. VERNA provided update to both pt's dtrs, Nelida and Kelly. Kelly requesting to schedule a video call with pt later today. VERNA updated pt's nurse. VERNA faxed clinical info to [facility] and spoke with Ursula. Provided update regarding negative COVID test. Attending physician ordered another test to be completed this evening (24 hours after yesterdays). VERNA is following to assist as needed with discharge planning.
[2020-03-14 16:20] VITALS: BP 135/70
[2020-03-14 16:28] LABS: HEMATOCRIT 42.9 % (37.0-47.0); HEMOGLOBIN 13.9 gm/dL (12.0-15.0); MCH 29.8 pg (26.0-34.0); MCHC 32.4 g/dL (28.0-37.0); MCV 91.9 fL (80.0-100.0); RBC 4.67 mil/uL (4.20-5.00); RDW 13.6 % (10.5-14.5); WBC 9.2 thou/uL (4.0-11.0)
[2020-03-14 16:37] LABS: CALCIUM 9.5 mg/dL (8.5-10.1); CREATININE 0.6 mg/dL (0.6-1.0)
[2020-03-14 16:39] LABS: POTASSIUM 2.5 mmol/L (3.5-5.1)
[2020-03-14 20:25] VITALS: BP 129/82
== END 2020-03-15 02:26 | DRG 178 ==
LOC: 3W 18:48
PROVIDERS: ADMIT Internal Medicine; ATTEND Internal Medicine
DX: U07.1 COVID-19 (principal); E44.0 Moderate protein-calorie malnutrition; F23 Brief psychotic disorder; F03.91 Unspecified dementia, unspecified severity, with behavioral disturbance; F01.51 Vascular dementia, unspecified severity, with behavioral disturbance; Z68.1 Body mass index [BMI] 19.9 or less, adult; F41.9 Anxiety disorder, unspecified; B37.9 Candidiasis, unspecified; Z79.899 Other long term (current) drug therapy
CPT/HCPCS: 10080; 10879

== ENCOUNTER 2020-03-14 20:37 | Inpatient (IN) | payer OTHER ==
[~2020-03-14] VITALS: Ht 162.6 cm; Wt 40.4 kg
[2020-03-15 03:00] VITALS: BP 154/110
--- NOTE | 2020-03-15 04:50 | NUR ---
03-15-20 RECEIVED PT 0245 PT DROWSY, AAOX1, VSS, RR EVEN AND NONLABORED ON RA. PT DENIES ANY PAIN AND SI/HI. PER REPORT PT HAS SKIN TEAR ON RIGHT HAND, DRESSING CLEAN AND INTACT, IV DC FROM RT FOREARM, COBAN CLEAN, DRY AND INTACT, LEFT AC IV ACCESS D/C 2X2 WITH TAPE, CLEAN, DRY. PT WAS WET AND NOTED SMALL BM, DARK REDNESS WITH SOME PURPLING IN SACRUM, NO SKIN BREAKDOWN. PT HX HTN, HLD, ANXIETY, ENCEPHALOPATHY, NONRHEUMATIC MITRAL INSUFFICIENCY, PREDISPOSED TO UTI, DIVERTICIULITIES, RHABDO, DEPRESSION, ALZEHEIMERS DEMENTIA. PT WAS POSITION IN BED FOR COMFORT. FALLS PERCAUTION IN PLACE. ZERO S/S OF ACUTE DISTRESS NOTED, PT WILL CONTINUE TO BE MONITOR PER [facility] PROTOCOL.
[2020-03-15 13:48] VITALS: BP 117/90
[2020-03-15 15:40] VITALS: BP 117/90
--- NOTE | 2020-03-15 17:43 | NUR ---
Assumed care of patient at 0700. Up in maki chair. Confused. mumbling incoherehtly. Reaching for sheets and fidgeting with her fingers. Incontinent of bowel and bladder. Small dime size reddened area on sacrum. Lubricant applied, monitoring and keeping area clean and dry. Is drinking Ensure supplement. Is not eating much but taking thickened liquids well. Makes faces when eating mashed potatoes. Out in the dayroom. Attempted conversation and responds verbally but is not understandable. Remains on Fall precautions.
[2020-03-15 19:30] VITALS: BP 133/68
[2020-03-16 00:15] VITALS: BP 117/90
--- NOTE | 2020-03-16 04:18 | NUR ---
Assumed care of patient this pm shift. Patient sitting in mileu during assessment. Patient is alert and oriented to self only. Patient appears sedated. Patients affect is flat. Patient takes medications crushed in pudding. Patient is considered a falls risk. Vital signs are stable. Patient does not appear to be in any acute distress. Patient is nonverbal at this time. We will continue to monitor per hospital policy.
[2020-03-16 07:00] VITALS: BP 144/87
[2020-03-16 08:30] VITALS: BP 144/87
--- NOTE | 2020-03-16 13:03 | NUR ---
VERNA spoke with Ursula at [facility], , concerning admission. Ursula stated Pt could be admitted 14 days after 1st positive test. Pt would be able to be admitted on 03/22/2020. VERNA will continue to follow.
--- NOTE | 2020-03-16 15:55 | NUR ---
0700 ASSUMED CARE OF PATIENT, PATIENT SITTING IN GERICHAIR IN DAYROOM AT THAT TIME. PATIENT ASLEEP IN CHAIR OFF AND ON. PATIENT RESPONDS TO NAME, UNABLE TO ANSWER QUESTIONS. PATIENT CALM AT THAT TIME. PATIENT TAKES FEW BITES OF BREAKFAST. MEDICATION GIVEN CRUSHED IN PUDDING WITHOUT DIFFICULTY. 1400 PATIENT REPOSITIONED IN CHAIR. PATIENT QUIET WITH NO BEHAVIORS NOTED.
[2020-03-16 22:00] VITALS: BP 117/89
--- NOTE | 2020-03-17 05:47 | NUR ---
Assumed care of pt @ 1900. Pt calm et cooperative this shift. Took medications crushed in pudding without difficulty. VSWNL. Health assessment with no abnormalities noted at present time. Unable to assess SI/HI/AVH due to cognitive deficit but pt does not demonstrate any signs or symptoms of emotional distress at present time. Currently resting in bed with eyes closed. Will continue to monitor per protocol.
--- NOTE | 2020-03-17 06:48 | H ---
[facility] [place] [address] HISTORY AND PHYSICAL Name: RAFIA GARCÍA Room #: 528B-B ADM IN M.R.#: [id number] Admission: 03/15/20 Attend Phys: Arnoldo Rios DO Discharge: Date of : 36 Report #: [id number] THIS REPORT FOR: cc: ANDRES TAVARES MD [facility] - Family physician unknown Arnoldo Rios DO ~ CC: Arnoldo MAJOR unknown ANDRES TAVARES DATE OF SERVICE: 03/15/2020 INPATIENT PSYCHIATRIC EVALUATION ATTENDING PSYCHIATRIST: Arnoldo Rios DO [employer]TER [employer] MILLER: Marcos Broussard MD REASON FOR READMISSION: Major neurocognitive disorder with behavioral disturbance, COVID-19 positive. The patient is a very poor historian and is essentially nonverbal. Information taken from chart and televideo interaction with the patient. HISTORY OF PRESENT ILLNESS: This is an 79-year-old demented, ill, frail, debilitated female that was originally admitted to the [facility] Unit on 03/01/2020, the patient had been sent out from nursing facility with daughter, Nelida Batista. At that time, she was at [facility] since 02/17. Apparently, she was physically combative, agitated, throwing things; therefore, she was admitted to the Geriatric Psych Unit. The patient was discharged to Medical Unit last Friday due to COVID negative status and then readmitted to us on 03/15/2020 due to a [facility] becoming a COVID Management Unit, given the number of increased positive patients. The patient essentially was not able to tell me how she is doing, not doing. She does not appear in any distress, sitting in a Katarina chair. The patient in terms of past medical history had an 11 day or so of admission to [facility] prior to going to [facility]. Admission diagnosis goes back to 2018. ROS: unable to be completed due to patients lack of verbal communication SOCIAL HISTORY: Born and raised with one brother, intact family; has a bachelor's degree in international theatre. The patient has 3 children total. PAST MEDICAL HISTORY: Includes allergic rhinitis, diverticulosis, [facility] [address] [place] [address] HISTORY AND PHYSICAL Name: WINNIE VORAFIA Room #: 528B-B ADM IN [facility].#: [id number] Admission: 03/15/20 Attend Phys: Arnoldo Rios DO Discharge: Date of : 38 Report #: [id number] hyperlipidemia, mitral insufficiency, osteoarthritis, osteopenia, depression, urinary incontinence. FAMILY HISTORY: Hypertension in mother, osteoporosis in mother. Father side not well known. Also negative family psychiatric history. Daughter did not believe that the patient has been physically, sexually or emotionally abused. Younger brother is alive in good health. She has been x 2. PSYCHIATRIC MEDICATION TRIALS: Including Xanax, olanzapine, Exelon patch and Namenda. She was COVID-19 negative on admission. ADDITIONAL SURGICAL HISTORY: Hysterectomy, , malrotated bowel repair. LABORATORY DATA: The patient's most recent laboratories from 03/14; white count 9.2, H and H 13.9 and 42.9, platelet count 135. On 03/14; sodium 151, potassium 3.5, chloride 106, bicarbonate 39, anion gap 6, BUN 35, creatinine 0.6, estimated GFR 96, glucose 146. Hemoglobin A1c 5.8, that was from 03/08. Also from back in 03/08, B12 of 386, folate 19.4, TSH 0.707. Urinalysis from 03/01 was negative. Toxicology positive for benzodiazepine on 03/01, negative for salicylate, acetaminophen and alcohol. COVID-19 PCR serology update; she was negative on 03/01, positive on 03/08, negative on 03/08, positive on 03/09 and negative on 03/13, positive 03/14. PHYSICAL EXAMINATION: VITAL SIGNS: On 03/15, temperature 99.2, pulse 85, respirations 18, BP 154/110. Later that day, BP was 117/90 and temperature decreased to 97.3. CURRENT MEDICATIONS: Thiamine 100 mg p.o. daily, nystatin 500,000 International Units p.o. b.i.d., memantine 10 mg p.o. b.i.d., heparin 5000 International Units subcutaneous b.i.d., famotidine 20 mg p.o. daily, docusate 100 mg p.o. b.i.d., cyanocobalamin 1000 mcg p.o. daily, calcium carbonate 500 mg p.o. b.i.d., vitamin C 500 mg p.o. b.i.d., MiraLax 17 g p.o. daily, olanzapine 2.5 mg p.o. IM p.r.n., Zofran 4 mg p.o. daily. Otherwise, house PRNs. ALLERGIES: No allergies. MUSCULOSKELETAL: Reclined in a Katarina chair, appearing, calm, largely mute with me. MENTAL STATUS EXAMINATION: This is a well-developed, ill-appearing, debilitated female. BMI is 15.4, weight 40.965 kilos. Attention fair. Concentration impaired. Speech largely nonverbal. Thought process, unable to be assessed. Thought content, ____ poverty. No self-harm behavior, unable to assess for auditory, visual, or tactile hallucinations. Mood and affect which best can be said is constricted. Memory grossly impaired. Insight impaired, judgment impaired. Fund of knowledge well below average. [facility] [address] [place] [address] HISTORY AND PHYSICAL Name: RAFIA GARCÍA Room #: 528B-B ADM IN M.R.#: [id number] Admission: 03/15/20 Attend Phys: Arnoldo Rios DO Discharge: Date of : 36 Report #: [id number] FORMULATION: An 79-year-old female readmitted to Geriatric Psychiatry following previous Geriatric Psych hospitalization for dementia with behavioral disturbance. DIAGNOSES: Major neurocognitive disorder, likely due to Alzheimer's disease with behavioral disturbance, COVID-19 positive status. Medical comorbidities listed above. PLAN: Continue to evaluate, stabilize. Attempt to work out plan for her to discharge to [facility] and/or another facility who take COVID-positive patient. ESTIMATED LENGTH OF STAY: 10-14 days. STRENGTHS: She is insured, supportive family. WEAKNESSES: End-stage dementia and multiple morbidities. No code status <ELECTRONICALLY SIGNED> By: Arnoldo Rios DO 03/17/20 [id number] Arnoldo Rios, DO /nt
[2020-03-17 08:45] VITALS: BP 109/48
[2020-03-17 11:57] LABS: HEMATOCRIT 43.2 % (37.0-47.0); HEMOGLOBIN 13.6 gm/dL (12.0-15.0); MCHC 31.5 g/dL (28.0-37.0); RBC 4.69 mil/uL (4.20-5.00); RDW 13.9 % (10.5-14.5); WBC 13.1 thou/uL (4.0-11.0)
[2020-03-17 12:32] LABS: ALBUMIN 2.6 g/dL (3.4-5.0); CALCIUM 9.1 mg/dL (8.5-10.1); CREATININE 0.8 mg/dL (0.6-1.0); MAGNESIUM 2.4 mg/dL (1.8-2.4); PHOSPHORUS 3.3 mg/dL (2.5-4.9); TOTAL BILIRUBIN 0.5 mg/dL (0.2-1.0); TOTAL PROTEIN 7.4 g/dL (6.4-8.2)
[2020-03-17 12:40] LABS: POTASSIUM 2.7 mmol/L (3.5-5.1)
--- NOTE | 2020-03-17 13:48 | NUR ---
VERNA had a phone call with Nelida and Dr. Rios. Nelida was informed of the recommendation for hospice. Nelida stated they prefered hospice house and would like a referral sent to hospice. VERNA explained that it is not a guarantee the Pt will be accepted intoa hospice house. VERNA asked what the families next option would be for Pt to remain in the hospital or for the Pt to d/c to a private residence with Hospice. Nelida stated she wanted to speak with her family on the matter and call SW back with and answer SW sent hospice house referrals to hospice and [facility]
--- NOTE | 2020-03-17 13:49 | NUR ---
HAS BEEN LYING ION BED WITH EYES CLOSED SINCE START OF SHIFT-MOANS SOFTLY TO SELF AND WILL OPEN EYES AND RESPOND TO VERBAL COMMANDS BUT OFFERS NO COHERENT CONVERSATION. ANXIOUS,DISTRAUGHT FACIAL EXPRESSION BUT DOES APPEAR TO CALM WITH NURSE HOLDING HER HAND OR RUBBING BACK. ATE ONLY BITES OF FOOD DESPITE MULTIPLE ATTEMPTS-WHEN GIVEN FOOD WILL OPEN MOUTH AND LETS FOOD RUN OUT OF FRONT OF MOUTH-OR POCKET -DOES NOT FOLLOW VERBAL COMMANDS TO SWALLOW-WHEN GIVEN THICKENED APPLEJUICE AFTER 2 BITESD OF YOGURT WITH CRUSHED AM MEDS DID APPEAR TO SWALLOW BUT BEGAN COUGHING. CRITICAL POTASSIUM CALLED TO FLOOR AT APPROX 1230-DR CHRISTIE AND DR. DUNHAM NOTIFIED As well an nursing finishing supervisor.
--- NOTE | 2020-03-17 16:29 | NUR ---
VERNA called Nelida to inform [facility] and hospice has nor given a decision. hospice would like to complete a peer to peer with nurse Montgomery. VERNA informed weekend SW will follow up. VERNA will continue to follow.
--- NOTE | 2020-03-17 18:26 | NUR ---
UP IN CHAIR THIS PM -POSITIONED FOR COMFORT Q 1 HR-DOES HAVE EPISODES OF RESTLESSNESS/DISTRESSED FACIAL EXPRESSION ANDM SOFT MOANING. ORDERS RECEIVED FOR PALLATIVE CARE/COMFORT CARE AT APPROX 1630-DID TAKE 2-3 BITES OF APPLESACUE,YOGURT WITH MUCH PROMPTING-APPROX. 140 CC OD NECTAR THICK LIQUIDS FOR 7A-7P SHIFT. INCONTINENT OPF URINE X 2-INCONTINENT CARE PROVIDED-NO SKIN BREAKDOWN NOTED,
[2020-03-17 19:00] VITALS: BP 119/61
--- NOTE | 2020-03-17 21:51 | NUR ---
Care of patient assumed at 1915: Patient sleeping in bed at start of shift. Easy to arouse but remains non-verbal. Drowsy, appears to be resting quietly. Remains on comfort care. No s/s of anxiety or pain observed. Lungs diminished to bilateral lower lobes. Oral care provided and moisturizer applied to lips. Repositioned with total assist x2. Patient sleeping quietly at this time.
[2020-03-18 07:35] VITALS: BP 139/92
--- NOTE | 2020-03-18 10:29 | NUR ---
VERNA spoke with Sabine WattersSalo with Hospice who said their doctor notated last night that they could not admit pt to the hospice house until 03/23; pt must also be non-symptomatic. VERNA contacted pt's daughters Kelly and Nelida and asked them what they would like to do? Pt cannot return to [place] until 03/22, and there is a chance she could pass away before them. VERNA advised them that if she goes home with hospice they can be with their mother. They decided they would like Hospice to come to Nelida's home at [address], [place] [address]. Kelly is also in town from [place]. VERNA contacted Sabine Watters with Hospice at [phone] who said they can accept pt. She said she will need pt to d/c tomorrow. She was in the middle of another assessment and will call VERNA back with more information. VENRA team alerted nursing staff that pt will be going home with hospice some time tomorrow. VERNA team will continue to follow pt during her stay on this unit.
[2020-03-18 11:00] VITALS: BP 119/61
--- NOTE | 2020-03-18 14:45 | NUR ---
Lying in bed without s/o distress. Appears to sleep. Alerts to name only. Minimal speech that is not understandable. No speech/behavior suggestive of SI/HI. RR 28 without nasal flaring or retractions. Breath sounds clear with good aeration, bilaterally equal. O2 sat 95%. Reg HR auscultated. Color pink with brisk capillary refill and palpable peripheral pulses. Approximately 10 ml of yellow urine on chux on bed. Active bowel sounds over soft, flat abdomen. Sacrum reddened with area of broken skin, cleaned and optiform drsg. applied. Up to [facility] with 2 person assist.
[2020-03-18 19:40] VITALS: BP 94/43
--- NOTE | 2020-03-19 04:54 | NUR ---
03-18-20 CARE TRANSFERRED 1899 OBSERVED PT RESTING WITH EYES CLOSED IN BED. 193 PT NON-VERBAL ON COMFORT CARE, RR 18 EVEN AND NONLABORED ON RA, PT REPOSITION TO RIGHT SIDE, LATER PT BECAME RESTLESS AND MEDICATION WAS ADMIN AT 2099 AND PT WAS REPOSITION TO LEFT SIDE WITH PILLOWS AND HEAD OF BED ELEVATED FOR PT COMFORT. LATER NOTED PT MOVING AND TENSING UP AND MEDICATION WAS ADMIN AND PT WAS REPOSITION TO RIGHT SIDE. LATER PT BECAME RESTLESS AND TENSING UP RR 26 EVEN AND NONLABORED ON RA, MEDICATION ADMIN. APPROXIMATELY 30 MINUTES LATER NOTED PT RR 18 EVEN AND NONLABORED ON RA AND PT WAS RELAXED, PT REPOSITION TO SUPINE. PT HAS REMAINED NONVERBAL. PT WILL CONTINUE TO BE MONITOR PER [facility].
[2020-03-19 06:24] VITALS: BP 102/57
[2020-03-19 09:47] VITALS: BP 119/61
--- NOTE | 2020-03-19 09:53 | NUR ---
GIVEN ATIVAN 0.5MG PO AT 0800 PRIOR TO TRANSPORT TO DAUGHTERS HOME. ORAL CARE,PERINEAL CARE PROVIDED,CLOTHING CHANGED PRIOR TO TRANSPORT. DAUGHTER ZAC GREER CONTACTED AND REVIEWED DC PAPERWORK AND F/U WITH HOSPICE-DAUGHTER DENIES QUESTIONS-STATES UNDERSTANDING-MESSAGE LEFT WITH QUINN AT HOSPICE AND RETURN CALL FROM RN ON DUTY MALISSA RECEIVED AFTER PT DC AT APPROX 0900-REPORT GIVEN. PT AT TIME OF DISCHARGE RESPONDING TO PAINFUL STIMULI ONLY-RESPIRATIONS SHALLOW -RATE OF 20-WARM TO TOUCH-LAST O2 SAT OF 90 PERCENT. BP 90/48 -TEMP 100.9 P-112. LEFT UNIT AT APPROX 0830 VIA CART-ACCOMPNIED BY [email or web address] TRANSPORTER AND THIS NURSE
== END 2020-03-19 08:30 | disposition hospice, home (50) | DRG 56 ==
LOC: SBH
PROVIDERS: Internal Medicine; ADMIT Psychiatry & Neurology Psychiatry; ATTEND Psychiatry & Neurology Psychiatry
DX: G30.9 Alzheimer's disease, unspecified (principal); F02.81 Dementia in other diseases classified elsewhere, unspecified severity, with behavioral disturbance; U07.1 COVID-19; E43 Unspecified severe protein-calorie malnutrition; E87.0 Hyperosmolality and hypernatremia; Z68.1 Body mass index [BMI] 19.9 or less, adult; F41.9 Anxiety disorder, unspecified; E78.5 Hyperlipidemia, unspecified; K57.90 Diverticulosis of intestine, part unspecified, without perforation or abscess without bleeding; M19.90 Unspecified osteoarthritis, unspecified site; M85.80 Other specified disorders of bone density and structure, unspecified site; F32.9 Major depressive disorder, single episode, unspecified; R54 Age-related physical debility; E86.0 Dehydration; E87.6 Hypokalemia; Z51.5 Encounter for palliative care; Z79.899 Other long term (current) drug therapy
CPT/HCPCS: 10880